=== PATIENT | female | born 1945 | race Caucasian/White ===

== ENCOUNTER 2022-03-03 17:20 | Inpatient (IN) | payer MEDICARE ==
[2022-03-03 18:25] LABS: #Monocytes 0.6 10x3/uL (0.0-1.1); #Neutrophils 8.7 10x3/uL (1.5-8.4); %Basophils 0.3 % (0.0-2.0); %Eosinophils 0.3 % (0.0-6.0); %Lymphocytes 7.6 % (18.0-47.0); %Monocytes 5.7 % (0.0-10.0); %Neutrophils 85.5 % (40.0-75.0); Hemoglobin 13.5 g/dL (12.0-15.5); Mean Corpuscular HGB CONC 32.5 g/dL (32.0-36.0); Mean Corpuscular Hemoglobin 29.9 pg (27.0-33.0); Mean Corpuscular Volume 92.2 fl (81.6-98.3); Mean Platelet Volume 10.5 fl (7.4-10.4); Platelet Count 285 10x3/uL (150-450); RBC Distribution Width 13.4 % (11.5-14.5); Red Blood Cell (RBC) Count 4.51 10x6/uL (3.90-5.03); White Blood Cell (WBC) Count 10.1 10x3/uL (3.5-10.5)
[2022-03-03] MEDS ORDERED: HYDROcodone/Acetaminophen 5/325 mg Tablet ONE (18:30)
[2022-03-03] MEDS ORDERED: Diltiazem 125 MG/25 ML ONE (18:30)
[2022-03-03 18:54] LABS: ALT (SGPT) 11 U/L (8-55); AST (SGOT) 22 U/L (5-34); Albumin 4.1 g/dL (3.4-4.8); Alkaline Phosphatase 133 U/L (40-110); Anion Gap 19 mmol/L (10-20); BUN (Urea Nitrogen) 16 mg/dL (9.8-20.1); Bilirubin, Total 1.1 mg/dL (0.2-1.2); Calc. Creatinine Clearance 0 mL/min (70-130); Calcium 8.8 mg/dL (7.8-10.44); Carbon Dioxide 19 mmol/L (23-31); Chloride 103 mmol/L (98-107); Estimated GFR 72; Glucose 86 mg/dL (83-110); Magnesium 1.3 mg/dL (1.6-2.6); Potassium 3.9 mmol/L (3.5-5.1); Protein, Total 7.1 g/dL (5.8-8.1); Sodium 137 mmol/L (136-145)
[2022-03-03] MEDS ORDERED: Magnesium 2 GM/50 ML BAG (IN WATER) ONE (20:07)
[2022-03-03 20:15] LABS: SARS-CoV-2 NAA Rapid Test Not Detected (NotDetected)
[2022-03-03] MEDS ORDERED: Acetaminophen 325 MG TAB PO PRN (22:18)
[2022-03-03] MEDS ORDERED: Diltiazem 125 MG, Admixture Fee 1 EACH in Sodium Chloride 0.9% 100 ML IVPB SCH (22:30)
[2022-03-03] MEDS: Enoxaparin 120 MG/0.8 ML SYRINGE SC SCH (23:26)
[2022-03-03] MEDS: cefTRIAXone\\ROCEPHIN 2 GM in Sodium Chloride 0.9% 100 ML IVPB SCH (23:26)
[2022-03-03 23:41] LABS: Magnesium 1.8 mg/dL (1.6-2.6)
[2022-03-03 23:42] LABS: PTT 28.1 sec (22.0-33.0); Prothrombin Time 11.3 sec (9.5-12.1)
[2022-03-03 23:45] VITALS: TEMP 98.2
[2022-03-03 23:45] LABS: Troponin I 0.017 ng/mL (< 0.028)
[2022-03-04] MEDS: HYDROcodone/Acetaminophen 7.5/325 mg Tablet PO PRN ×3 (02:50→18:14)
[2022-03-04] MEDS ORDERED: Labetalol HCl 100 MG/20 ML VIAL SLOW IVP SCH (03:45)
[2022-03-04 05:16] LABS: #Monocytes 0.5 10x3/uL (0.0-1.1); %Basophils 0.4 % (0.0-2.0); %Eosinophils 0.2 % (0.0-6.0); %Lymphocytes 11.5 % (18.0-47.0); %Monocytes 5.4 % (0.0-10.0); %Neutrophils 81.8 % (40.0-75.0); Hemoglobin 12.7 g/dL (12.0-15.5); Mean Corpuscular Hemoglobin 30.1 pg (27.0-33.0); Mean Corpuscular Volume 94.1 fl (81.6-98.3); Mean Platelet Volume 10.9 fl (7.4-10.4); Platelet Count 280 10x3/uL (150-450); RBC Distribution Width 13.3 % (11.5-14.5); Red Blood Cell (RBC) Count 4.22 10x6/uL (3.90-5.03); White Blood Cell (WBC) Count 8.5 10x3/uL (3.5-10.5)
[2022-03-04 05:36] LABS: Anion Gap 23 mmol/L (10-20); BUN (Urea Nitrogen) 12 mg/dL (9.8-20.1); Calc. Creatinine Clearance 115 mL/min (70-130); Calcium 8.7 mg/dL (7.8-10.44); Carbon Dioxide 16 mmol/L (23-31); Chloride 105 mmol/L (98-107); Estimated GFR 82; Glucose 80 mg/dL (83-110); Potassium 3.9 mmol/L (3.5-5.1); Sodium 140 mmol/L (136-145)
[2022-03-04] MEDS: Levothyroxine Sodium 25 MCG TAB PO SCH (05:48)
[2022-03-04] MEDS: Gemfibrozil 600 MG TAB PO SCH (08:32)
[2022-03-04] MEDS ORDERED: Losartan Potassium 50 MG TAB PO SCH (09:00)
[2022-03-04] MEDS ORDERED: Amlodipine 5 MG TAB PO SCH (09:00)
[2022-03-04] MEDS ORDERED: cloNIDine 0.1 MG TAB PO SCH (09:00)
[2022-03-04] MEDS ORDERED: Dextrose 50% Abboject 50 ML SYRINGE SLOW IVP PRN (10:07)
[2022-03-04] MEDS ORDERED: Dextrose 5% in Water 1,000 ML IV PRN (10:07)
[2022-03-04] MEDS ORDERED: HumaLOG 300 UNITS/3 ML VIAL SC PRN ×2 (10:07)
[2022-03-04] MEDS ORDERED: Metoprolol Tartrate 25 MG TAB PO SCH ×2 (10:15→21:00)
[2022-03-04] MEDS: Enoxaparin 120 MG/0.8 ML SYRINGE SC SCH (12:06)
[2022-03-04 12:16] LABS: Bilirubin Neg (Negative); Blood, Urine 25 (Negative); Glucose, Urine (Dipstick) Normal (Negative); Ketone, Urine 50 mg/dL (Negative); Leukocyte 100 (Negative); Nitrite Positive (Negative); Protein, Urine (Dipstick) 100 mg/dl (Neg-Trace); Specific Gravity, Urine 1.015 (1.005-1.030); Urobilinogen Normal mg/dL (Less than 2)
[2022-03-04 12:20] LABS: CAUTI Indications for Culture Pelvic or flank pain; Clarity Hazy (Clear)
[2022-03-04 12:42] LABS: RBC/HPF 0-3 HPF (0-3); Squamous Epithelial 0-3 HPF (0-3)
[2022-03-04 12:43] LABS: Bacteria/HPF 3+ HPF (None Seen)
[2022-03-04 12:46] LABS: Urine Culture Reflex No No
[2022-03-04] MEDS ORDERED: Apixaban 5 MG TAB PO SCH (15:15)
[2022-03-04] MEDS: Lorazepam 0.5 MG TAB PO PRN (18:17)
[2022-03-04] MEDS: Apixaban 5 MG TAB PO SCH (20:16)
[2022-03-04] MEDS: Famotidine 20 MG TAB PO SCH (20:17)
[2022-03-04] MEDS: cefTRIAXone\\ROCEPHIN 2 GM in Sodium Chloride 0.9% 100 ML IVPB SCH (22:56)
[2022-03-05] MEDS: HYDROcodone/Acetaminophen 7.5/325 mg Tablet PO PRN ×2 (02:01→10:18)
[2022-03-05] MEDS: Levothyroxine Sodium 25 MCG TAB PO SCH (05:31)
[2022-03-05] MEDS ORDERED: Carvedilol 3.125 MG TAB PO SCH (08:00)
[2022-03-05] MEDS: Apixaban 5 MG TAB PO SCH ×2 (08:21→22:52)
[2022-03-05] MEDS: Gemfibrozil 600 MG TAB PO SCH (08:21)
[2022-03-05] MEDS: Lorazepam 0.5 MG TAB PO PRN ×2 (08:21→16:26)
[2022-03-05] MEDS: DULoxetine 30 MG CAP PO SCH (08:22)
[2022-03-05] MEDS: Famotidine 20 MG TAB PO SCH ×2 (08:22→22:52)
[2022-03-05] MEDS: Losartan Potassium 50 MG TAB PO SCH (08:22)
[2022-03-05 08:40] LABS: Anion Gap 14 mmol/L (10-20); BUN (Urea Nitrogen) 10 mg/dL (9.8-20.1); Calc. Creatinine Clearance 115 mL/min (70-130); Calcium 8.9 mg/dL (7.8-10.44); Carbon Dioxide 25 mmol/L (23-31); Chloride 105 mmol/L (98-107); Estimated GFR 84; Glucose 118 mg/dL (83-110); Magnesium 1.6 mg/dL (1.6-2.6); Potassium 3.6 mmol/L (3.5-5.1); Sodium 140 mmol/L (136-145)
[2022-03-05] MEDS ORDERED: Cepastat Lozenges 1 LOZ PO PRN (08:55)
[2022-03-05] MEDS ORDERED: Artificial Tear Sol 15 ML BOT EA EYE PRN (08:55)
[2022-03-05] MEDS ORDERED: Acetaminophen 500 MG TAB PO PRN (08:55)
[2022-03-05] MEDS ORDERED: Loperamide HCl 2 MG CAP PO PRN ×2 (08:55)
[2022-03-05] MEDS ORDERED: Loratadine 10 MG TAB PO PRN (08:55)
[2022-03-05] MEDS ORDERED: Sodium Chloride 0.65% Nasal 44 ML BOT EA NARE PRN (08:55)
[2022-03-05] MEDS ORDERED: Moisturizing Cream (Eucerin) 113 GM JAR TOP PRN (08:55)
[2022-03-05] MEDS ORDERED: Benzonatate 100 MG CAP PO PRN (08:55)
[2022-03-05] MEDS ORDERED: Amlodipine 5 MG TAB PO SCH (09:00)
[2022-03-05] MEDS ORDERED: Doxepin HCl 10 MG CAP PO PRN (15:36)
[2022-03-05] MEDS: Carvedilol 6.25 MG TAB PO SCH (16:26)
[2022-03-05] MEDS: cefTRIAXone\\ROCEPHIN 2 GM in Sodium Chloride 0.9% 100 ML IVPB SCH (22:53)
[2022-03-06] MEDS: HYDROcodone/Acetaminophen 7.5/325 mg Tablet PO PRN ×2 (01:47→18:55)
[2022-03-06] MEDS: Levothyroxine Sodium 25 MCG TAB PO SCH (05:07)
[2022-03-06] MEDS: Famotidine 20 MG TAB PO SCH ×2 (07:41→20:13)
[2022-03-06] MEDS: Losartan Potassium 50 MG TAB PO SCH (07:41)
[2022-03-06] MEDS: DULoxetine 30 MG CAP PO SCH (07:42)
[2022-03-06] MEDS: Apixaban 5 MG TAB PO SCH ×2 (07:42→20:13)
[2022-03-06] MEDS: Gemfibrozil 600 MG TAB PO SCH (07:42)
[2022-03-06] MEDS: Carvedilol 6.25 MG TAB PO SCH ×2 (07:42→16:47)
[2022-03-06] MEDS: Lorazepam 0.5 MG TAB PO PRN (07:42)
[2022-03-06] MEDS ORDERED: Ondansetron PF 4 MG/2 ML Vial IVP PRN (10:46)
[2022-03-06] MEDS: cefTRIAXone\\ROCEPHIN 2 GM in Sodium Chloride 0.9% 100 ML IVPB SCH (22:52)
[2022-03-07] MEDS: Levothyroxine Sodium 25 MCG TAB PO SCH (05:46)
[2022-03-07 05:54] VITALS: BMI 44.9
[2022-03-07] MEDS: HYDROcodone/Acetaminophen 7.5/325 mg Tablet PO PRN ×2 (06:30→13:40)
[2022-03-07] MEDS: Carvedilol 6.25 MG TAB PO SCH (08:25)
[2022-03-07] MEDS: Gemfibrozil 600 MG TAB PO SCH (08:25)
[2022-03-07] MEDS: DULoxetine 30 MG CAP PO SCH (08:25)
[2022-03-07] MEDS: Apixaban 5 MG TAB PO SCH (08:25)
[2022-03-07] MEDS: Famotidine 20 MG TAB PO SCH (08:25)
[2022-03-07] MEDS: Losartan Potassium 50 MG TAB PO SCH (08:25)
[2022-03-07 08:30] VITALS: BP 126/80
== END 2022-03-07 15:45 | disposition home health service (06) | DRG 602 ==
LOC: CSHERS 17:20 → CSHICU 21:53
PROVIDERS: ADMIT Family Medicine; ATTEND Family Medicine
DX: L03.115 Cellulitis of right lower limb (principal); J96.01 Acute respiratory failure with hypoxia; J90 Pleural effusion, not elsewhere classified; N39.0 Urinary tract infection, site not specified; I45.2 Bifascicular block; Z68.42 Body mass index [BMI] 45.0-49.9, adult; I42.9 Cardiomyopathy, unspecified; I50.20 Unspecified systolic (congestive) heart failure; I11.0 Hypertensive heart disease with heart failure; I48.91 Unspecified atrial fibrillation; E11.9 Type 2 diabetes mellitus without complications; E66.9 Obesity, unspecified; E03.9 Hypothyroidism, unspecified; E78.5 Hyperlipidemia, unspecified; E83.42 Hypomagnesemia; K52.9 Noninfective gastroenteritis and colitis, unspecified; S93.314A Dislocation of tarsal joint of right foot, initial encounter; I50.9 Heart failure, unspecified; Z20.822 Contact with and (suspected) exposure to COVID-19; Z90.49 Acquired absence of other specified parts of digestive tract; Z98.51 Tubal ligation status; Z88.5 Allergy status to narcotic agent; Z79.899 Other long term (current) drug therapy; Z79.890 Hormone replacement therapy; Z79.84 Long term (current) use of oral hypoglycemic drugs; Z98.890 Other specified postprocedural states; Z89.422 Acquired absence of other left toe(s); Z80.3 Family history of malignant neoplasm of breast
CPT/HCPCS: 36415; 36416; 51702; 71045; 80048; 80053; 81001; 83735; 83880; 84439; 84443; 84484; 85025; 85610; 85730; 86140; 87077; 87086; 87186; 93005; 93010; 93306; 94640; 94760; 94799; 96374; 96375; J0696; J1650; J2405; J3475; J3490; U0002

== ENCOUNTER 2023-01-03 17:57 | Emergency (ER) | payer MEDICARE ==
[2023-01-03 19:00] LABS: #Neutrophils 12.3 10x3/uL (1.5-8.4); %Basophils 0.1 % (0.0-2.0); %Lymphocytes 5.6 % (18.0-47.0); %Monocytes 7.2 % (0.0-10.0); %Neutrophils 86.6 % (40.0-75.0); Hemoglobin 13.6 g/dL (12.0-15.5); Mean Corpuscular HGB CONC 32.4 g/dL (32.0-36.0); Mean Corpuscular Hemoglobin 30.4 pg (27.0-33.0); Mean Platelet Volume 10.6 fl (7.4-10.4); Platelet Count 249 10x3/uL (150-450); RBC Distribution Width 13.2 % (11.5-14.5); Red Blood Cell (RBC) Count 4.47 10x6/uL (3.90-5.03); White Blood Cell (WBC) Count 14.2 10x3/uL (3.5-10.5)
[2023-01-03 19:09] LABS: INR-International Normal Ratio 1.1; Prothrombin Time 11.6 sec (9.5-12.1)
[2023-01-03 19:11] LABS: ALT (SGPT) 22 U/L (8-55); AST (SGOT) 54 U/L (5-34); Albumin 3.8 g/dL (3.4-4.8); Alkaline Phosphatase 106 U/L (40-110); Anion Gap 19 mmol/L (10-20); BUN (Urea Nitrogen) 36 mg/dL (9.8-20.1); Bilirubin, Total 0.9 mg/dL (0.2-1.2); Calc. Creatinine Clearance 0 mL/min (70-130); Calcium 8.9 mg/dL (7.8-10.44); Carbon Dioxide 19 mmol/L (23-31); Chloride 109 mmol/L (98-107); Estimated GFR 50; Globulin 3.6 g/dL (2.4-3.5); Glucose 171 mg/dL (83-110); Potassium 4.1 mmol/L (3.5-5.1); Protein, Total 7.4 g/dL (5.8-8.1); Sodium 143 mmol/L (136-145)
[2023-01-03] MEDS ORDERED: Digoxin 0.5 MG/2 ML AMP ONE (19:19)
[2023-01-03] MEDS ORDERED: niCARdipine 25 MG/10 ML SDV ONE (19:36)
[2023-01-03] MEDS ORDERED: dilTIAZem 125 MG/25 ML SDV ONE (21:17)
[2023-01-03] MEDS ORDERED: Dexamethasone 10 MG/ML VIAL ONE (21:36)
== END 2023-01-03 22:51 | disposition short-term general hospital (02) ==
LOC: CSHERS 17:57
DX: I48.91 Unspecified atrial fibrillation (principal); C71.9 Malignant neoplasm of brain, unspecified
CPT/HCPCS: 36415; 36416; 70450; 72125; 72170; 80053; 85025; 85610; 93005; J1100; J1160